=== PATIENT | female | born 1960 | race Caucasian/White ===

== ENCOUNTER 2018-06-04 12:08 | Emergency (ER) | payer OTHER ==
[2018-06-04 12:21] VITALS: BP 123/95
--- NOTE | 2018-06-04 12:26 | UC ---
Head Injury HPI - HPI Summary HPI Summary: Patient is a 57 year old female, presents today after she sustained a fall while getting out of her car. She slipped and fell backwards, fell to whiplash injury to her neck but did not hit her head anywhere. She landed on her upper back. She was helped by a friend and she she drove herself to arrive at the urgent care. Denies any loss of consciousness or being dizzy or having nausea or vomiting. Pain is mainly located in the neck and upper back up to the mid back. She also reports some right-sided lower lumbar pain as well. Denies any radicular symptoms, numbness or tingling or incontinence. Denies any fever, chills, cough chest pain or shortness of breath . No diaphoresis. Denies any abdominal pain , nausea or vomiting , diarrhea or constipation. - History Of Current Complaint Chief Complaint: UCHeadInjury Stated Complaint: FELL HEAD/NECK PAIN Time Seen by Provider: 06/04/18 12:09 Hx Obtained From: Patient Hx Last Menstrual Period: one year ago Pain Intensity: 6 - Allergies/Home Medications Allergies/Adverse Reactions: Allergies Allergy/AdvReac Type Severity Reaction Status Date / Time acetaminophen Allergy Rash Verified 06/04/18 12:23 baclofen Allergy Eyes Verified 06/04/18 12:23 Itchy/Swollen/Red/Watery codeine Allergy Rash And Verified 06/04/18 12:23 Itching gabapentin Allergy Unknown Verified 06/04/18 12:23 Reaction Details hydrocodone Allergy Rash Verified 06/04/18 12:23 PMH/Surg Hx/FS Hx/Imm Hx - Additional Past Medical History Additional PMH: Depression Nausea She has significant surgical history for neck surgery after she fell off the letter that got complicated by an infection. Her last C-spine surgery was [address] Ferro Previously Healthy: Yes - Surgical History Surgical History: Yes Surgery Procedure, Year, and Place: NECK SURGERY X4 (1ST ONE IN 2014, 2ND ONE ON MARCH 13, 2016, AND 3RD AND 4TH ON ) - Family History Known Family History: Positive: Hypertension - Social History Alcohol Use: None Substance Use Type: None Smoking Status (MU): Never Smoked Tobacco Household Exposure Type: Cigarettes Review of Systems All Other Systems Reviewed And Are Negative: Yes Constitutional: Positive: Negative Skin: Positive: Negative Eyes: Positive: Negative ENT: Positive: Negative Respiratory: Positive: Negative Cardiovascular: Positive: Negative Gastrointestinal: Positive: Negative Genitourinary: Positive: Negative Motor: Positive: Negative Neurovascular: Positive: Negative Musculoskeletal: Positive: Decreased ROM - Neck(C-spine), Myalgia - Paracervical muscles and trapezius/rhomboid muscles Neurological: Positive: Headache Psychological: Positive: Negative Is Patient Immunocompromised?: No Physical Exam - Summary Physical Exam Summary: Physical Exam: Const: Appears well. No signs of apparent distress present. Alert and oriented x 3. Musculo: Walks with a normal gait. Head/Face: Atraumatic, normocephalic on inspection. Eyes: EOMI and PERRLA in both eyes. Conjunctivae clear. No discharge noted ENT: Hearing normal, TM normal appearing bilaterally . Respiratory: Respirations are unlabored. Lungs clear to auscultation bilaterally, no wheezing , rhonchi or rales noted . CVS: Regular rate and Rhythm, S1S2 normal , no murmurs identified. Extremities: Peripheral circulation is grossly normal. Pulses 2+ Abdomen : Soft non tender , nondistended , Bowel sounds present . No guarding , rebound tenderness or rigidity noted. Skin: No lesions or rash located on the upper extremities or on the lower extremities. Neuro: Cranial nerves II to XII intact, motor and sensory intact. DTR Intact bilaterally. Mood is normal. Affect is normal. GCS: 15 [place] [facility] stroke scale is negative C-spine: There is a prior surgical scar rodney and completely healed wound in the lower cervical area. There is no significant midline tenderness but there is tenderness to palpation in bilateral paraspinal muscles. Range of motion is significantly limited and painful in all planes Upper extremity reflexes are normal, sensory and motor are intact Thoracic spine there is tenderness to palpation in midline at T2 through T8. There is also tenderness to palpation in bilateral paraspinal and the bilateral rhomboid muscles Lumbar spine: No midline tenderness, there is tenderness to palpation in the right lower paraspinal muscles Straight leg raise test is negative bilaterally DTRs in lower extremity intact and equal bilaterally Triage Information Reviewed: Yes Vital Signs: Initial Vital Signs Temp 98.7 F 06/04/18 12:14 Pulse 81 06/04/18 12:14 Resp 14 06/04/18 12:14 BP 123/95 06/04/18 12:14 Pulse Ox 98 06/04/18 12:14 Vital Signs Reviewed: Yes Diagnostics - Radiology No standard instances Radiology Interpretation Completed By: Radiologist Summary of Radiographic Findings: C spine Xray: 1. STATUS POST ANTERIOR AND POSTERIOR SPINAL FUSION. NO EVIDENCE FOR ACUTE FRACTURE.2. 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 MODERATE DEGENERATIVE DISC DISEASE AT THE C3-C4 LEVEL. T spine X-rays: 1. MILD ANTERIOR WEDGING OF A MID TO LOWER DORSAL VERTEBRAL BODY UNCHANGED FROM THE PRIOR. EXAM SUGGESTIVE OF A MILD CHRONIC COMPRESSION FRACTURE. 2. MODERATE DEGENERATIVE DISC DISEASE. Head Injury Course/Dx - Course Course Of Treatment: During the visit today, we obtained C-spine and thoracic spine x-rays. I reviewed the films with Dr. Guzman , ? T8 Compression njury appears old. No acute fracture noted. We discussed that the findings are consistent with whiplash injury and strain in the upper back and low back muscles . I will prescribe the medication to the pharmacy . She will start physical therapy. Patient expressed understanding . - Differential Dx/Diagnosis Provider Diagnoses: Cervical strain. Rhomboid muscle /Thoracic strain. Lumbar strain Discharge - Sign-Out/Discharge Documenting (check all that apply): Patient Departure All imaging exams completed and their final reports reviewed: Yes - Discharge Plan Condition: Stable Disposition: HOME Prescriptions: Cyclobenzaprine TAB* [Flexeril 10 MG TAB*] 10 mg PO BID PRN 10 Days #20 tab PRN Reason: Spasms Patient Education Materials: Cervical Strain (ED), Low Back Strain (ED), Thoracic Back Strain (ED), Neck Pain (ED) Referrals: Edda Gabriel PA [Primary Care Provider] - 1 Week Joshua Sykes MD [Medical Doctor] - Additional Instructions: Please start taking the medication as prescribed to the pharmacy,it is a muscle relaxant Ibuprofen as needed for pain control Warm compresses to her neck and upper back, 15 minutes at a time Please start physical therapy. Follow up with your primary care doctor in 1 week . please follow up with spine surgery if symptoms are not improving. Return to Urgent care / ER if symptoms get worse. - Billing Disposition and Condition Condition: STABLE Disposition: Home
== END 2018-06-04 13:30 | disposition home or self-care (01) ==
LOC: UCEAST 12:08
DX: S39.012A Strain of muscle, fascia and tendon of lower back, initial encounter (principal); S33.5XXA Sprain of ligaments of lumbar spine, initial encounter; S16.1XXA Strain of muscle, fascia and tendon at neck level, initial encounter; V48.4XXA Person boarding or alighting a car injured in noncollision transport accident, initial encounter; Y92.9 Unspecified place or not applicable; Z88.5 Allergy status to narcotic agent; Z88.6 Allergy status to analgesic agent; Z88.8 Allergy status to other drugs, medicaments and biological substances; S29.012A Strain of muscle and tendon of back wall of thorax, initial encounter
CPT/HCPCS: 72050; 72070; 99213; G0463